=== PATIENT | male | born 1955 | race Caucasian/White ===

== ENCOUNTER 2017-01-09 10:02 | Observation (INO) | payer OTHER ==
--- NOTE | 2017-01-09 10:11 | CPEKG ---
Heart Rate: 63 RR Interval: 952 P-R Interval: 152 QRSD Interval: 98 QT Interval: 448 QTC Interval: 459 P [place]: 40 QRS [place]: 38 T Wave [place]: 6 EKG Severity - NORMAL ECG - EKG Impression: SINUS RHYTHM Electronically Signed By: Tyler Dewey 09-Jan-2017 14:47:15
--- NOTE | 2017-01-09 10:25 | EDPHY ---
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 Patient apparently passed out multiple times today. Patient states he awoke early this morning around 6 AM and was getting coffee when he had the episode of passing out. He believes he struck his head when he fell. He has a bump on his head and injury to his nose. He does not remember the event. He went to sit down. Shortly thereafter he apparently passed out again while in a chair. His found him passed out in the chair with "his eyes rolled to the back of his head." Patient had a 3rd episode of passing out this morning while having a bowel movement. On my evaluation his head hurts where he struck it. He otherwise feels well. He denies fever, he denies cold symptoms, he denies cough , shortness of breath, chest pain, pain or swelling in the legs. He has not had symptoms like this previously. Review of systems: A 10 point review of systems was obtained and other than described above is negative - Personal History Current Tetanus/Diphtheria Vaccine: Yes Current Tetanus Diphtheria and Acellular Pertussis (TDAP): Yes - Medical/Surgical History Hx Asthma: No Hx Chronic Respiratory Disease: No Hx Diabetes: No Hx Cardiac Disease: Yes Hx Renal Disease: No Hx Cirrhosis: No Hx Alcoholism: No Hx HIV/AIDS: No Hx Splenectomy or Spleen Trauma: No Other PMH: PMH: 1. Hypertension. 2. High cholesterol. 3. Reactive airway disease. PSH: 1. Vasectomy - Social History Smoking Status: Never smoked - Physical Exam Exam: General Appearance: Alert, nontoxic. Eyes: Pupils equal and round no pallor or injection. ENT, Mouth: Mucous membranes moist. Respiratory: There are no retractions, lungs are clear to auscultation. Cardiovascular: Regular rate and rhythm. Gastrointestinal: Abdomen is soft and non tender, no masses, bowel sounds normal. Neurological: Alert and oriented x4. Cranial nerves 2-12 grossly intact. Strength and sensation intact and symmetrical. Skin: Warm and dry, no rashes. 0.5 cm laceration to the bridge of the nose that approximates well. Musculoskeletal: Neck is supple non tender. Extremities are symmetrical, full range of motion. Psychiatric: Patient is oriented X 3, there is no agitation. Constitutional: Initial Vital Signs O2 Sat (%) 96 01/09/17 10:05 O2 Delivery Mode Room Air O2 (L/minute) 1 Allergies/Adverse Reactions: No Known Allergies Allergy (Unverified 01/09/17 10:12) Home Medications: Medication Instructions Recorded Albuterol [Proventil Inhaler HFA 1 - 2 puffs IH Q4H PRN 01/09/17 (*)] Herbals/Supplements -Info Only 1 ea PO DAILY 01/09/17 Lisinopril [Zestril 10 mg (*)] 10 mg PO DAILY 01/09/17 Loratadine [Claritin 10 mg] 10 mg PO DAILY 01/09/17 Simvastatin [Zocor] 20 mg PO HS 01/09/17 Medical Decision Making - Diagnostics Imaging Results: Imaging Impressions Face CT 01/09/17 10:20 Impression: Soft tissue swelling in the posterior scalp. No evidence for a skull fracture. No evidence for an acute intracranial abnormality. CT Facial Bones, Without Contrast History: Fall. Pain. Technique: 1.25-mm helical images were obtained of the facial bones, without contrast. Multiplanar reformation was performed. Radiation dose reduction technique was utilized. Findings: There is a minimally displaced and mildly angulated fracture of the left nasal bone, with the anterior nasal bone deviated to the right. A nondisplaced fracture is seen in the right nasal bone. No other evidence for a facial bone fracture. There is opacification of the left maxillary sinus. Mucous membrane thickening is seen throughout the paranasal sinuses, more predominant in the ethmoid and maxillary sinuses. The mastoid air cells are clear. Impression: 1. Minimally displaced and angulated left nasal bone fracture and nondisplaced right nasal bone fracture. 2. Moderate underlying chronic sinus-related change throughout the paranasal sinuses and probable acute left maxillary sinus. Results called and discussed with ARLEY Paez, on January 09, 2017 at 11:12. Head CT 01/09/17 10:20 Impression: Soft tissue swelling in the posterior scalp. No evidence for a skull fracture. No evidence for an acute intracranial abnormality. CT Facial Bones, Without Contrast History: Fall. Pain. Technique: 1.25-mm helical images were obtained of the facial bones, without contrast. Multiplanar reformation was performed. Radiation dose reduction technique was utilized. Findings: There is a minimally displaced and mildly angulated fracture of the left nasal bone, with the anterior nasal bone deviated to the right. A nondisplaced fracture is seen in the right nasal bone. No other evidence for a facial bone fracture. There is opacification of the left maxillary sinus. Mucous membrane thickening is seen throughout the paranasal sinuses, more predominant in the ethmoid and maxillary sinuses. The mastoid air cells are clear. Impression: 1. Minimally displaced and angulated left nasal bone fracture and nondisplaced right nasal bone fracture. 2. Moderate underlying chronic sinus-related change throughout the paranasal sinuses and probable acute left maxillary sinus. Results called and discussed with ARLEY Paez, on January 09, 2017 at 11:12. Chest X-Ray 01/09/17 11:10 Impression: No evidence of acute cardiopulmonary abnormality. Procedures: Procedure: Laceration repair. Verbal consent was obtained from the patient. The 0.5 cm laceration on the bridge of the nose did not require anesthetization. The wound was irrigated, draped and explored to its base with a gloved finger. There were no deep structures involved. No tendon injury was identified. The wound was repaired with Dermabond. The wound repair was simple. The procedure was performed by myself. ED Course/Re-evaluation: Patient is discussed with my secondary supervising physician Dr. Tyler Dewey. Patient presents to the emergency department for recurrent syncopal episodes this morning. On presentation patient is nontoxic. Vital signs are stable. Physical exam including neurologic exam is unremarkable. Evaluation is unremarkable. I am concerned given recurrent syncopal episodes of unclear etiology. Patient will be admitted to the hospitalist service, to the care of Dr. Jean Carlos Skaggs for further evaluation and care. The plan has been discussed with the patient who voiced understanding and agreement with it. Differential Diagnosis: Included but not limited to syncopal episode secondary to vasovagal, hypovolemic state, cardiac disturbances, ACS, PE as well as potential seizure activity - Data Points Laboratory Results: Laboratory Results 01/09/17 10:13 01/09/17 10:13 01/09/17 01/09/17 01/09/17 10:13 10:13 10:13 WBC 6.75 10^3/uL 10^3/uL (3.80-9.50) RBC 4.71 10^6/uL 10^6/uL (4.40-6.38) Hgb 15.2 g/dL g/dL (13.7-17.5) Hct 43.1 % % (40.0-51.0) MCV 91.5 fL fL (81.5-99.8) MCH 32.3 pg pg (27.9-34.1) MCHC 35.3 g/dL g/dL (32.4-36.7) RDW 12.0 % % (11.5-15.2) Plt Count 215 10^3/uL 10^3/uL (150-400) MPV 8.9 fL fL (8.7-11.7) Neut % (Auto) 67.4 % % (39.3-74.2) Lymph % (Auto) 19.4 % % (15.0-45.0) [place] % (Auto) 7.6 % % (4.5-13.0) Eos % (Auto) 4.3 % % (0.6-7.6) Baso % (Auto) 1.0 % % (0.3-1.7) Nucleat RBC Rel Count 0.0 % % (0.0-0.2) Absolute Neuts (auto) 4.55 10^3/uL 10^3/uL (1.70-6.50) Absolute Lymphs (auto) 1.31 10^3/uL 10^3/uL (1.00-3.00) Absolute Monos (auto) 0.51 10^3/uL 10^3/uL (0.30-0.80) Absolute Eos (auto) 0.29 10^3/uL 10^3/uL (0.03-0.40) Absolute Basos (auto) 0.07 10^3/uL 10^3/uL (0.02-0.10) Absolute Nucleated RBC 0.00 10^3/uL 10^3/uL (0-0.01) Immature Gran % 0.3 % % (0.0-1.1) Immature Gran # 0.02 10^3/uL 10^3/uL (0.00-0.10) D-Dimer < 0.27 ug/mLFEU ug/mLFEU (0.00-0.50) Sodium 138 mEq/L mEq/L (134-144) Potassium 4.3 mEq/L mEq/L (3.5-5.2) Chloride 104 mEq/L mEq/L (97-110) Carbon Dioxide 23 mEq/l mEq/l (22-31) Anion Gap 11 mEq/L mEq/L (8-16) BUN 16 mg/dL mg/dL (7-23) Creatinine 1.0 mg/dL mg/dL (0.7-1.3) Estimated GFR > 60 Glucose 113 mg/dL H mg/dL (70-100) Calcium 9.7 mg/dL mg/dL (8.5-10.4) Troponin I < 0.012 ng/mL ng/mL (0.000-0.034) Departure - Departure Disposition: [facility] Inpatient Acute Clinical Impression: Syncope Qualifiers: Syncope type: unspecified Qualified Code(s): R55 - Syncope and collapse Condition: Good
[2017-01-09 10:29] LABS: % IMMATURE GRANULYOCYTES 0.3 % (0.0-1.1); ABSOLUTE IMMATURE GRANULOCYTES 0.02 10^3/uL (0.00-0.10); ADD DIFF? NO; ADD MORPH? NO; ADD SCAN? NO; ATYPICAL LYMPHOCYTE FLAG 0 (0-99); FRAGMENT RBC FLAG 0 (0-99); HEMATOCRIT 43.1 % (40.0-51.0); HEMOGLOBIN 15.2 g/dL (13.7-17.5); LEFT SHIFT FLG 0 (0-99); LIPEMIA HEMOLYSIS FLAG 90 (0-99); MEAN CELL HEMOGLOBIN 32.3 pg (27.9-34.1); MEAN CELL HEMOGLOBIN CONCENTR. 35.3 g/dL (32.4-36.7); MEAN CELL VOLUME 91.5 fL (81.5-99.8); MEAN PLATELET VOLUME 8.9 fL (8.7-11.7); PLATELET CLUMPS FLAG 40 (0-99); PLATELET COUNT 215 10^3/uL (150-400); RED BLOOD CELL COUNT 4.71 10^6/uL (4.40-6.38)
[2017-01-09 10:40] LABS: ANION GAP 11 mEq/L (8-16); CALCIUM 9.7 mg/dL (8.5-10.4); CARBON DIOXIDE 23 mEq/l (22-31); CHLORIDE 104 mEq/L (97-110); GLOMERULAR FILTRATION RATE > 60; GLUCOSE 113 mg/dL (70-100); POTASSIUM 4.3 mEq/L (3.5-5.2); SODIUM 138 mEq/L (134-144)
[2017-01-09 10:51] LABS: TROPONIN I < 0.012 ng/mL (0.000-0.034)
[2017-01-09] MEDS ORDERED: ALBUTEROL 60 PUFFS/8 GM MDI IH PRN (14:29)
[2017-01-09] MEDS ORDERED: ONDANSETRON 4 MG/2 ML VIAL IVP PRN (16:27)
[2017-01-09] MEDS ORDERED: ZOLPIDEM TARTRATE 5 MG TAB PO PRN (16:27)
[2017-01-09] MEDS ORDERED: ACETAMINOPHEN 325 MG TAB PO PRN (16:27)
[2017-01-09] MEDS ORDERED: oxyCODONE IR 5 MG TAB PO PRN (16:27)
[2017-01-09] MEDS ORDERED: IBUPROFEN 200 MG TAB PO PRN (16:27)
--- NOTE | 2017-01-09 17:25 | HOSPPROG ---
Hospitalist Progress Note Assessment/Plan: HISTORY AND PHYSICAL CC: Syncope HISTORY: This patient has been quite healthy throughout his 61 years and has no previous history of syncope were seizure, and no cardiac history. Today he got up at home and was making a pot of coffee when he began to feel a bit lightheaded and woozy. He put his hands on the counter but suddenly then woke up sitting on the floor not knowing how he got there. His heard him fall collapse and came in immediately and both he and his has stated that they feel he came back to normal mentation promptly without any postictal type scenario. Subsequently he was doing a chair when he had another syncope sitting in a chair and then about an hour later was sitting on the commode for but bowel movement and had yet another syncope where he fell off the chair and hit the face. He has nasal pain and evaluation in the ER does confirm nasal fracture. Again with the 2nd 2 episodes he woke promptly without any postictal scenario. His did see him when he was still unconscious with both of these episodes and there was no evidence of anything that looks like seizure. The patient has no tongue biting and no incontinence. At this time other than some mild nasal pain he feels very well. Prior to his syncopal spells he has been feeling well in his usual state of health. he has remained very active including chopping wood, bike riding and other significant physical activity. There has been no nausea vomiting, bleeding, or other fluid losses, and his intake of food and fluids has been normal. He does not use any street drugs, marijuana, or alcohol beyond 1 beer per day. He has had no fever, no respiratory symptoms, no chest pain or palpitations, no ankle swelling, no abdominal pain, skin lesions. He did travel by airplane from [place] back here to [place] about a week ago. 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 They have 2 grown children who are off. There is some plays baseball and they occasionally fly off to see 1 of his baseball games. Their daughter lives in [place] and had just visited her recently. [place] have [place] home on [place] at [facility]. 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 I have reviewed the list and ordered appropriate medicines. PHYSICAL EXAMINATION: Vital Signs: Normal vital signs all around with no fever; he does not have any orthostatic changes in vital signs when checked Wafer Slicer: Sinus rhythm with normal appearing P and QRS waves and no abnormal intervals measured Examination: General: alert, oriented, good mentation, relaxed Skin: warm, dry, good color, no rash HEENT: normal Neck: no mass or jvd Resps: relaxed Lungs: clear breath sounds Heart: regular, no murmur Abdomen: soft, nondistended, nontender, +BS, no mass Upper Extremities: normal Lower Extremities: no edema, warm No Bleeding or bruising Neurologic: normal speech/language, normal relief mate, no focal weakness IV site: looks normal LABORATORY DATA: Normal CBC, D-dimer, troponin, and unremarkable chemistry panel RADIOLOGY STUDIES: I reviewed images of CT scan of head in the ER that shows no evidence of intracranial injury. There nasal fractures but no other skull or bony injuries. I reviewed chest x-ray images from the ER and this is normal chest x-ray 12 LEAD EKG: My review of the 12 lead tracing done in the ER is a normal EKG ASSESSMENT: 3 episodes of syncope occurring earlier today with minimal prodrome all lightheadedness, nothing to suggest C sugar at this time. There is no sign of heart failure, arrhythmia, ischemia, or other EKG abnormalities and is a normal heart exam. Nothing to suggest PE at this time and he has a normal D-dimer though would keep in mind that he did just travel. I would expect PEG severe enough to cause 3 separate syncopal spells today to show some hemodynamics change, EKG changes or hypoxemia here at this time. It is certainly possible that there was vasovagal activity causing this. However he has no specific changes or syndrome that would lead him to suddenly have 3 episodes today after going 61 years without any. PLANS: -observe overnight on coin purse framer -check echocardiogram to make sure there is nothing that shows up that would predispose him to arrhythmia I have reviewed the patient's case in detail with . I have reviewed the patient's past medical records as part of this assessment, including Objective: Vital Signs Temp Pulse Resp BP Pulse Ox 36.6 C 60 16 117/78 91 L 01/09/17 15:34 01/09/17 15:34 01/09/17 15:34 01/09/17 15:34 01/09/17 15:34 ICD10 Worksheet Patient Problems: Problems Problem Status Onset Syncope Acute
--- NOTE | 2017-01-09 19:00 | CPEKG ---
Heart Rate: 66 RR Interval: 909 P-R Interval: 148 QRSD Interval: 90 QT Interval: 436 QTC Interval: 457 P [place]: 36 QRS [place]: 34 T Wave [place]: 17 EKG Severity - BORDERLINE ECG - EKG Impression: INCOMPLETE ANALYSIS DUE TO MISSING DATA IN PRECORDIAL LEAD(S) EKG Impression: SINUS RHYTHM EKG Impression: BORDERLINE T ABNORMALITIES, ANT-LAT LEADS EKG Impression: COMPARED WITH 01/09/2017 AT 10:09 A.M., T ABNORMALITIES NOW NOTED. MISSING DATA EKG Impression: IN LEAD V6 Electronically Signed By: Cassidy Nava 10-Jan-2017 10:29:00
[2017-01-09] MEDS ORDERED: ATROPINE SULFATE 1 MG/10 ML SYR ONE (19:02)
--- NOTE | 2017-01-09 19:09 | HOSPPROG ---
Hospitalist Progress Note Assessment/Plan: Critical care note: Code alvin called. Asystole on telemetry. Pt was laying in chair, unconscious for few seconds and was aroused with deep sternal rub, no other interventions. Had similar 3 syncopal episodes today. Once while standing, one in chair, and then once on commode. Denies CP, SOB. S: he c/o nausea before event A&P: 1. Sinus pause: >10 sec pause on telemetry. Stat EKG, trop. Dimer negative. No electrolyte abnormalities -pacer pads in place. Stat TTE. Spoke with Dr. Pierre who paged Dr. Park who is enroute for pacer placement Critical care time spent: 45 min bedside with patient, reviewing notes, EKGs/ labs and discussing with Dr. Pierre Objective: Vital Signs Temp Pulse Resp BP Pulse Ox 36.6 C 60 16 117/78 91 L 01/09/17 15:34 01/09/17 15:34 01/09/17 15:34 01/09/17 15:34 01/09/17 15:34 01/08/17 01/09/17 01/10/17 05:59 05:59 05:59 Intake Total 400 Balance 400 - Physical Exam Constitutional: other (zapata-colored, mild diaphoresis) Eyes: PERRL Ears, Nose, Mouth, Throat: moist mucous membranes Cardiovascular: regular rate and rhythym, no murmur, rub, or gallop, No edema Respiratory: no respiratory distress, no rales or rhonchi Gastrointestinal: normoactive bowel sounds Skin: warm Musculoskeletal: full muscle strength Neurologic: AAOx3, CN II-XII Intact Psychiatric: interacting appropriately ICD10 Worksheet Patient Problems: Problems Problem Status Onset Syncope Acute
[2017-01-09 20:03] LABS: INR 1.18 (0.83-1.16)
[2017-01-09 20:04] LABS: APTT 24.8 SEC (23.0-38.0)
[2017-01-09] MEDS ORDERED: diphenhydrAMINE 25 MG CAP PO ONE (20:08)
[2017-01-09] MEDS ORDERED: NS 1,000 ML IV ONE (20:08)
[2017-01-09] MEDS ORDERED: BACITRACIN IRRIGATION/NS 50,000 UNITS/1,000 ML BTL IRR ONE (20:08)
[2017-01-09] MEDS ORDERED: DIAZEPAM 5 MG TAB PO ONE (20:08)
[2017-01-09] MEDS ORDERED: fentaNYL 100 MCG/2 ML INJ ONE (20:11)
[2017-01-09] MEDS ORDERED: LIDOCAINE 1% 300 MG/30 ML SDV ONE ×2 (20:11→21:29)
[2017-01-09] MEDS ORDERED: MIDAZOLAM 2 MG/2 ML VIAL ONE (20:11)
[2017-01-09] MEDS ORDERED: BUPIVACAINE 0.5% 30 ML SDV ONE (20:12)
[2017-01-09] MEDS ORDERED: IOPAMIDOL (ISOVUE-300) 100 ML BTL ONE (20:15)
--- NOTE | 2017-01-09 20:15 | PDPROPOC ---
Sedation Plan of Care Sedation Plan of Care: vital signs stable, mental status noted, patient educated of risks, benefits, alternatives, patient can tolerate sedation ASA Classification: ASA 3 Mallampati Score: Class 3
[2017-01-09] MEDS ORDERED: CEFAZOLIN 1 GM/DEXTROSE/50 ML BAG IV ONE (20:39)
[2017-01-09] MEDS ORDERED: NON-FORMULARY NEW DRUG (Simvastatin [Zocor] 20 MG) PO SCH (21:00)
--- NOTE | 2017-01-09 21:10 | GCON ---
[f rep st] CONSULTATION CHIEF COMPLAINT: Syncope. 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 By the time his came to notice him, he was sitting on the floor, dazed, not knowin g how he got there; however, at that point in time, he felt no lightheadedness or dizziness. He fel t perfectly normal and was able to sit up in a chair. There was no postictal phenomenon at that poi nt in time. He was sitting in the chair later on, and then got up to have a bowel movement on the c ommode and had another episode of syncope. He hit his face and once again recovered well without any lightheadedness or dizziness after the scenario. This evening he had had dinner and was sitting in the recliner in the hospital when he started feeling a little nausea and then passed out. With merlin st rub, he came to. Concurrent to this, it was noted that he had prolonged pause with bradycardia w hich was not AV block but prolonged sinus pause. No GI upset recently, no abdominal process ongoing. No other instances of lightheadedness or dizzin ess. No known intracranial processes going on. Please note that his p.o. intake has been appropria te, no use of any significant alcohol or any recreational drug, no recent fluid loss noted, no recen t bleed. REVIEW OF SYSTEMS: Other than the above, 10-point review of systems is negative. PAST MEDICAL HISTORY: Exertion-induced asthma, hypertension, dyslipidemia. FAMILY HISTORY: Noncontributory. SOCIAL HISTORY: . Lives with his at home. 2 grown children. HOME MEDICATIONS: Lisinopril, ibuprofen. PHYSICAL EXAM: VITAL SIGNS: Heart rate of 62, blood pressure 130/70, temperature 98.5. GENERAL AP PEARANCE: Alert, oriented, good mentation, relaxed. SKIN: Warm, dry, and good color. HEENT: Pup ils equal, reacting to light, accommodating. NECK: Supple without any lymphadenopathy or thyromega ly. CHEST: Good air entry, bilaterally equal. No rales, rhonchi, rub. HEART: S1, S2 regular. No S3, no murmurs. ABDOMEN: Soft, nontender. No guarding or rigidity. Bowel sounds present. EXTRE MITIES: No edema. No clubbing. No cyanosis. NEUROLOGIC: Grossly intact. PSYCHIATRIC: Good men tation. Appears relaxed. LABORATORY DATA: Normal CMP, normal CBC. EKG shows normal sinus rhythm with no ST-T changes. Tele monitor is noted as above sinus pause for 10 seconds. Echocardiogram: Normal EF. No significant valvular abnormality. IMPRESSION/PLAN: This is a 61-year-old patient with sick sinus syndrome with associated syncope. I t is unclear as to the etiology of this. Ischemia as a primary cause of sick sinus syndrome is high ly unlikely, especially considering his troponins are negative and his D-dimer is negative. In view of this, I believe that in terms of treatment, the patient needs a pacemaker implant. I have expla ined to him the risks and benefits of the procedure. He understands this and is agreeable to it. Jos aguilar will implant a pacemaker on the left side this evening. Thank you for letting me participate in the patient's care. /[id number]/MODL
[2017-01-09] MEDS ORDERED: OXYCODONE/APAP 5/325 TAB PO PRN (22:08)
--- NOTE | 2017-01-09 22:16 | ECHO ---
[id number] + + [address] : : [place] [address] : : [phone] + + Adult Echocardiographic Report + --------+ :Name: ELISHA WHITLOCK JStudy Date: 01/09/2017 07:58 PM : : Hospital Admission Number: [id number] Locat ion: 207: :: 1955 Gender: Male Height: 73 in : :Age: 61 yrs Race: WH Weight: 200 l b : :Reason For Study: Eval LV Fx : : BSA: 2.2 mete rs2 : :History: Syncope x 3, 15 second pause, Pre Pacemaker : + --------+ MMode/2D Measurements \T\ Calculations IVSd: 0.77 cm LVIDd: 5.3 cm FS: 38.1 % Ao root diam: 3.1 cm LVPWd: 0.91 cm LVIDs: 3.3 cm EDV(Teich): 133.1 ml ACS: 1.7 cm ESV(Teich): 42.8 ml EF(Teich): 67.9 % Normal Measurement Values: + + :LVIDd (3.5-5.7cm) IVSd (0.6-1.1cm) LVPWd (0.6-1.1cm) Aortic Root (2.0-3.7cm)Left Atrium (1.5-4.0cm): :LV Vol(d) (76-115ml) LV Vol(s) (29-48ml) Ejec Fraction (50-65%)PV William (0.6- 1.2m/s) TV William (0.4-1.0m/s) : :MV E William (0.8-1.0m/s)MV A William (0.3-1.0m/s)LVOT William (0.7-1.2m/s) Asc Ao William ( 0.9-1.8m/s) : + + Doppler Measurements \T\ Calculations MV E max william: Ao V2 max: LV V1 max: PA V2 max: 63.2 cm/sec 130.3 cm/sec 71.1 cm/sec 88.2 cm/sec MV A max william: Ao max P.8 mmHgLV V1 max PG: PA max P.9 cm/sec 2.0 mmHg 3.1 mmHg MV E/A: 1.4 TR max william: 236.2 cm/sec TR max P.3 mmHg RAP systole: 5.0 mmHg RVSP(TR): 27.3 mmHg Left Ventricle The left ventricle is normal in size and function. There is normal left ventricular wall thickness. The left ventricular ejection fraction is normal. Ejection Fraction = 68%. The left ventricular wall motion is normal. Right Ventricle The right ventricle is normal in size and function. Atria The left atrial size is normal. Right atrial size is normal. Mitral Valve The mitral valve is normal in structure and function. There is no evidence of mitral valve prolapse. There is no mitral valve stenosis. There is no mitral regurgitation noted. Tricuspid Valve Normal tricuspid valve. There is trace tricuspid regurgitation. Aortic Valve The aortic valve is normal in structure and function. The aortic valve is trileaflet. There is no aortic stenosis. There is no aortic insufficiency. Pulmonic Valve The pulmonic valve is normal in structure and function. There is no pulmonic valvular regurgitation. Great Vessels The aortic root is normal size. Pericardium/Pleural There is no pericardial effusion. Conclusion A complete two-dimensional transthoracic echocardiogram was performed (2D, M-mode, Doppler and color flow Doppler). The left ventricle is normal in size and function. Ejection Fraction = 68%. The left ventricular wall motion is normal. The right ventricle is normal in size and function. There is trace tricuspid regurgitation. Final Reading Physician: Vijaya Kevin signed on 01/09/2017 10:15 PM Ordering Physician: Olinda Harris Performed By: Jack Atkins, NIKACS
[2017-01-10 04:37] LABS: % IMMATURE GRANULYOCYTES 0.4 % (0.0-1.1); ABSOLUTE IMMATURE GRANULOCYTES 0.03 10^3/uL (0.00-0.10); ADD DIFF? NO; ADD MORPH? NO; ADD SCAN? NO; ATYPICAL LYMPHOCYTE FLAG 0 (0-99); FRAGMENT RBC FLAG 0 (0-99); HEMOGLOBIN 13.6 g/dL (13.7-17.5); LEFT SHIFT FLG 0 (0-99); LIPEMIA HEMOLYSIS FLAG 90 (0-99); MEAN CELL HEMOGLOBIN 32.3 pg (27.9-34.1); MEAN CELL HEMOGLOBIN CONCENTR. 34.9 g/dL (32.4-36.7); MEAN CELL VOLUME 92.6 fL (81.5-99.8); MEAN PLATELET VOLUME 9.4 fL (8.7-11.7); PLATELET CLUMPS FLAG 0 (0-99); PLATELET COUNT 185 10^3/uL (150-400); RED BLOOD CELL COUNT 4.21 10^6/uL (4.40-6.38); RED CELL DISTRIBUTION WIDTH 12.1 % (11.5-15.2)
[2017-01-10 04:56] LABS: ANION GAP 8 mEq/L (8-16); CALCIUM 8.9 mg/dL (8.5-10.4); CARBON DIOXIDE 23 mEq/l (22-31); CHLORIDE 108 mEq/L (97-110); CREATININE 0.9 mg/dL (0.7-1.3); GLOMERULAR FILTRATION RATE > 60; GLUCOSE 89 mg/dL (70-100); POTASSIUM 4.5 mEq/L (3.5-5.2); SODIUM 139 mEq/L (134-144)
[2017-01-10 07:08] VITALS: TEMP 97.9; O2SAT 93
--- NOTE | 2017-01-10 08:43 | CPEKG ---
Heart Rate: 73 RR Interval: 822 P-R Interval: 140 QRSD Interval: 90 QT Interval: 408 QTC Interval: 450 P [place]: 47 QRS [place]: 30 T Wave [place]: -88 EKG Severity - ABNORMAL ECG - EKG Impression: SINUS RHYTHM EKG Impression: NONSPECIFIC T ABNORMALITIES, DIFFUSE LEADS EKG Impression: COMPARED WITH 01/09/2017 AT 6:57 P.M., T ABNORMALITIES ARE MORE PRONOUNCED Electronically Signed By: Cassidy Nava 10-Jan-2017 10:28:22
[2017-01-10] MEDS ORDERED: LISINOPRIL 10 MG TAB PO SCH (09:00)
[2017-01-10] MEDS ORDERED: NON-FORMULARY NEW DRUG (Loratadine [Claritin 10 Mg] 10 MG) PO SCH (09:00)
[2017-01-10] MEDS ORDERED: ATORVASTATIN CALCIUM 10 MG TAB PO SCH (09:00)
[2017-01-10] MEDS ORDERED: CETIRIZINE 10 MG TAB PO SCH (09:00)
[2017-01-10 11:35] VITALS: BP 108/79; PULSE 89; RESP 17
--- NOTE | 2017-01-10 12:41 | GDS ---
[f rep st] DISCHARGE SUMMARY DISCHARGE DIAGNOSIS: 1. Prolonged pause with bradycardia and recurrent syncope status post dual-chamber Biotronik pacema ker. 2. Hypertension. 3. Hyperlipidemia. 4. Abnormal EKG with T-wave inversion in the anterior leads. 5. Family history of coronary artery disease. HOSPITAL COURSE: For detailed H and P, please see prior dictation. Briefly, the patient is a 61-ye ar-old male, who presented to the hospital with recurrent syncope. On the day of admission, he was making a cup of coffee when he became lightheaded and woozy. He was able to put his hands on the co unter, but could not prevent collapse and syncope. He fell well after the event without any further lightheadedness or dizziness. Later that day, he was sitting on a chair and got up to have a bowel movement when he had another episode of syncope. On this occasion, he hit his face, but felt fine after the event. While in the hospital, he had a third event while eating dinner and sitting in a c hair. He started to feel a little nauseous and then had a syncopal event. He came to with chest ru b. He was noted to have had prolonged pauses with bradycardia which was not AV long, but prolonged sinus pause. Ultimately, the decision was made to proceed with dual-chamber pacemaker placement, wh ich was performed by Dr. Christian Park on the evening of 01/09/2017. The procedure was uncomplicated . The following day, the patient denied any significant discomfort over his pacemaker site. The de vice was without evidence of infection or hematoma. His initial chest x-ray was without evidence of pneumothorax. His EKG this morning is currently pending. An echocardiogram revealed preserved LV function with an ejection fraction of 68% without any wall motion abnormalities or significant valvu lar abnormalities. His troponins have been negative. His EKG on initial presentation showed normal sinus rhythm without ischemia. His EKG on the day of admission did show anterior T-wave changes. He denies any chest pain. PHYSICAL EXAMINATION: GENERAL: Patient appears in no acute distress. VITAL SIGNS: Blood pressure 108/78, heart rate 89, oxygen saturation 93% on room air. Afebrile. LUNGS: Clear to auscultation . No wheezes, rhonchi, or crackles auscultated. CARDIAC: Regular rate and rhythm without any murm urs, rubs, or gallops appreciated. CHEST WALL: His pacer site is clean, intact without any evidenc e of infection or hematoma. EXTREMITIES: No evidence of edema. LABORATORY: Troponin negative x2. BMP within normal limits. DISCHARGE MEDICATIONS: His medications will remain the same. He will continue: 1. Loratadine 10 mg daily. 2. Herbal supplement daily. 3. Lisinopril 10 mg daily. 4. Albuterol p.r.n. 5. Simvastatin 20 mg at bedtime. PLAN: The patient is currently stable and ready for discharge home. He has been given pacer precau tions. His device was interrogated the day of discharge and is working properly. He is scheduled f or AV wound check and pacer interrogation on 01/17/2017 at 1:30 p.m. He is also scheduled to follow up with Dr. Christian Park on 02/08/2017 at 9:30 a.m. His EKG on the day of discharge was abnormal w ith T-wave changes in the anterior leads. The patient was discussed with Dr. Zamarripa who recommend ed an exercise treadmill test in followup visit. He is scheduled for the treadmill test on 01/25/20 17 at 9 a.m. /[id number]/MODL
--- NOTE | 2017-01-10 13:54 | ASMTCASEMG ---
Discharge Plan Comments Coordination Status Comments Notes: Pt d/c with no case management needs identified. Case Management d/c poc: Home independent with follow up as directed by . Date Signed: 01/10/2017 01:53 PM Electronically Signed By:Araseli Rainey
--- NOTE | 2017-01-11 08:35 | EPPROC ---
Electrophysiology Procedure Note: PROCEDURE PERFORMED: Implantation of an A/V Pacemaker Subclavian vein angiography Fluoroscopy INDICATION: This is a 61 yr old with syncope X2 and then admitted to the hospital. In the hospital, he had another episode of syncope with 10 sec sinus pause. In view of this, it was deicded to implant a dual chamber pacemaker emergently. PROCEDURE NOTE: Patient presented to the cardiac catherization laboratory in a fasting, post absorptive state. Cardiac laborer chemical processing nurse administered moderate sedation. The left infraclavicular area was prepped and draped in the usual sterile fashion. Lidocaine plus bupivacaine was used for local anesthesia. Left subclavian venography was performed by injection of iodinated contrast into the left antecubital vein. This was done to assure patency of the vein and also to assess for any anatomical aberrations. Using a combination of blunt and sharp dissection and electrocautery, the dissection was carried down to the prepectoral fascia. All bleeding was controlled with electrocautery. Fluoroscopy was utilized during the entire procedure for venous access and placement of the leads. Using the usual technique, left cephalic vein was accessed and a glidewire was placed. Through this initially a 9F and later a 7F sheath was passed. Placement of the guidewires into the venous system was confirmed by low- pressure blood return and also by visualizing the guidewires advancing into the inferior vena cava. A purse string suture was applied around the guidewires. An active fixation ventricular lead was advanced into the right ventricular apex and screwed in place. An active fixation atrial lead was advanced into the right atrial appendage and screwed in place. The peel away sheaths were removed. Pacing thresholds, sensing parameters and lead impedances were measured. There was no diaphragmatic stimulation at maximum output. (We repositioned the lead three times before optimal numbers were obtained) The leads were sutured to the prepectoral fascia with 3 nonabsorbable sutures each. The pocket was created and it was flushed using antibiotic solution. It was inspected for any bleeding. The leads were attached to the pacemaker securely. The pacemaker was inserted into the pocket and secured in place with a nonabsorbable suture. Fluoroscopy was performed in [place] and [place] planes to verify right-sided placement of the leads. Also fluoroscopy of the pacemaker pocket was performed. The pacemaker pocket was closed in 3 layers with absorbable vicryl sutures. Steristrips were placed. Appropriate dressing was applied. The patient left the cardiac catheterization laboratory in stable condition. Serial Numbers: Device: Biotronik Edora 8 DRR SN [id number] Atrial Lead: Biotronik Solia S45 SN [id number] Ventricular Lead: Biotronik Solia S53 SN [id number] Stimulation Thresholds & Impedance Measurements: Atrial Lead 4mV, 0.7@0.4ms, 507Ohms Ventricular Lead 4.5mV, 0.6@0.4ms, 702Ohms Aman Pacing Parameters Pacing mode: DDD CLS Lower rate: 50 Upper tracking rate: 130 Upper sensor rate: 130 Patient Problems: Problems Problem Status Onset Syncope Acute
== END 2017-01-10 14:15 | disposition home or self-care (01) ==
LOC: INTOOBSV 11:33 → F2W 12:40
PROVIDERS: ADMIT Internal Medicine; ATTEND Internal Medicine
DX: R00.1 Bradycardia, unspecified (principal); R55 Syncope and collapse; I10 Essential (primary) hypertension; E78.5 Hyperlipidemia, unspecified; R94.31 Abnormal electrocardiogram [ECG] [EKG]; J45.909 Unspecified asthma, uncomplicated; Z82.49 Family history of ischemic heart disease and other diseases of the circulatory system
CPT/HCPCS: 33208; 70450; 70486; 71020; 93005; 93306; G0378; C1785; C1898; J0461; J0690; J2250; J3010; Q9967